=== PATIENT | female | born 1985 | race Two or more races ===

== ENCOUNTER 2021-05-19 11:32 | Emergency (ER) | payer MEDICAID, OTHER ==
[~2021-05-19] VITALS: Ht 152.4 cm; Wt 58.5 kg
[2021-05-19 13:00] VITALS: BP 124/79
[2021-05-19] MEDS ORDERED: cefTRIAXone SOD 1,000 MG VL IM ONE (13:15)
== END 2021-05-19 13:24 | disposition home or self-care (01) ==
LOC: ER 11:32
DX: K02.9 Dental caries, unspecified (principal); J45.909 Unspecified asthma, uncomplicated
CPT/HCPCS: 96372; 99283; J0696

== ENCOUNTER 2024-03-17 10:14 | Inpatient (IN) | payer MEDICAID ==
[~2024-03-17] VITALS: Ht 152.4 cm; Wt 64.7 kg
[~2024-03-17 10:14] MED LIST: AZIT-185 PO; CEFD300C2 PO; CEPH-510 PO; FER325T PO; IBUP-1454 PO; METH-1181 PO
[2024-03-17 11:00] VITALS: RESP 14
[2024-03-17] MEDS: IOHEXOL 350 MG/ML 100ML IJ ONE (11:20)
[2024-03-17 12:01] LABS: Basophils # (auto) 0.1 10 ^3/uL (0-0.2); Basophils % (auto) 1.2 % (0.0-2.0); Eosinophils # (auto) 0.2 10 ^3/uL (0-0.8); Hematocrit 27.6 % (36.0-46.0); Hemoglobin 8.7 g/dL (12.2-16.2); Lymphocytes # (auto) 1.4 10 ^3/uL (0.4-5.4); Lymphocytes % (auto) 24.8 % (10.0-50.0); Mean Corpuscular Hemoglobin 23.7 pg (28.0-32.0); Mean Corpuscular Hgb Conc. 31.6 g/dL (32.0-36.0); Mean Corpuscular Volume 75.1 fL (80.0-100.0); Monocytes # (auto) 0.6 10 ^3/uL (0-1.3); Monocytes % (auto) 9.8 % (0.0-12.0); Neutrophils # (auto) 3.5 10 ^3/uL (1.6-8.6); Neutrophils % (auto) 61.2 % (37.0-80.0); Nucleated Red Blood Cells % 0.1 %; Red Blood Cells 3.68 10^6/uL (4.0-5.20); Red Cell Distribution Width 17.2 % (11.8-14.3); White Blood Cell 5.8 10^3/uL (4.4-10.8)
[2024-03-17 12:14] LABS: Alanine Aminotransferase 12 U/L (7-40); Albumin 3.9 g/dL (3.2-4.8); Alkaline Phosphatase 43 U/L (46-116); Anion Gap 4 (5-15); Aspartate Aminotransferase 31 U/L (13-40); BUN/Creatinine Ratio 8.7 (10.0-20.0); Blood Urea Nitrogen 6 mg/dL (9-23); Calcium 8.3 mg/dL (8.5-10.1); Carbon Dioxide 26 mmol/L (20-30); Chloride 107 mmol/L (98-107); Glucose 81 mg/dL (74-106); Potassium 4.3 mmol/L (3.5-5.1); Sodium 137 mmol/L (136-145)
[2024-03-17 12:15] LABS: Bilirubin, Total 0.6 mg/dL (0.2-1.0); INR 1.11 (0.9-1.15); Partial Thromboplastin Time 30.2 SEC (24.5-34.5); Prothrombin Time 11.6 sec (9.3-11.8); Total Protein 6.1 g/dL (5.7-8.2)
[2024-03-17] MEDS: SODIUM CHLORIDE 0.9% 500 ML IV ONE (12:21)
[2024-03-17 13:08] LABS: Magnesium 1.8 mg/dL (1.6-2.6)
[2024-03-17] MEDS: VALPROATE INJ 500 MG in SODIUM CHL 0.9% 100 ML IV ONE (13:13)
[2024-03-17 15:27] LABS: Urine Bacteria None Seen /hpf (None Seen)
[2024-03-17 15:41] LABS: Urine Blood Negative /uL (Negative); Urine Clarity Clear (Clear); Urine Color Light-Yellow (Yellow); Urine Protein, UAD Negative (Negative); Urine Specific Gravity 1.043 (1.001-1.035); Urine Urobilinogen Normal (Negative); Urine WBC 5 /hpf (0 - 5); Urine pH 7.5 (5.0-9.0)
[2024-03-17 15:48] LABS: Amphetamine Screen, Urine Neg (NEGATIVE); Barbiturate Scree,Urine Neg (NEGATIVE); Benzodiazephine Screen, Urine Neg (NEGATIVE); Cannabinoid Screen, Urine Neg (NEGATIVE); Cocaine Screen, Urine Neg (NEGATIVE); Opiate Scree,Urine Neg (NEGATIVE); Phencyclidine Screen, Urine Neg (NEGATIVE)
[2024-03-17] MEDS ORDERED: MORPHINE SULFATE INJ 2 MG/ml SYRG IV PRN (16:15)
[2024-03-17] MEDS ORDERED: NITROGLYCERIN 0.4 MG SL TAB SL PRN (16:15)
[2024-03-17] MEDS ORDERED: ACETAMINOPHEN 325 MG TAB PO PRN (16:15)
[2024-03-17] MEDS ORDERED: ONDANSETRON HCL 4 MG/2 ML VIAL IV PRN (16:15)
[2024-03-17] MEDS ORDERED: DOCUSATE SOD 100 MG CAP PO PRN (16:15)
[2024-03-17] MEDS ORDERED: LORazepam 2MG/ML-1ML VIAL IV ONE (17:30)
[2024-03-17] MEDS: diphenhdrAMINE HCL 50 MG/1 ML VL IV ONE (17:40)
[2024-03-17] MEDS: KETOROLAC TROMETH 30 MG/ML 1ML VIAL IV ONE (17:40)
[2024-03-17] MEDS: METOCLOPRAMIDE HCL 5MG/ml INJ 2ml VIAL IV ONE (17:41)
[2024-03-17] MEDS: MAGNESIUM SULFATE 1GM/100ML 100 ML IV SCH (17:57)
[2024-03-17 19:30] VITALS: RESP 19; O2SAT 99
[2024-03-18] VITALS (7 sets, daily range): BP systolic 104–115; BP diastolic 54–74; PULSE 76–98; RESP 16–20; TEMP 97.2–98.2; O2SAT 98–100
[2024-03-18 06:06] LABS: Alkaline Phosphatase 45 U/L (46-116); Calcium 8.7 mg/dL (8.5-10.1); Carbon Dioxide 25 mmol/L (20-30); Chloride 109 mmol/L (98-107); Glucose 74 mg/dL (74-106); Potassium 3.8 mmol/L (3.5-5.1); Sodium 141 mmol/L (136-145)
[2024-03-18 06:07] LABS: Albumin 3.8 g/dL (3.2-4.8); Anion Gap 7 (5-15); Aspartate Aminotransferase 16 U/L (13-40)
[2024-03-18 06:08] LABS: Bilirubin, Total 0.8 mg/dL (0.2-1.0); Total Protein 6.3 g/dL (5.7-8.2)
[2024-03-18 06:20] LABS: Basophils # (auto) 0.1 10 ^3/uL (0-0.2); Hemoglobin 9.2 g/dL (12.2-16.2); Neutrophils # (auto) 2.9 10 ^3/uL (1.6-8.6); Neutrophils % (auto) 51.1 % (37.0-80.0); Red Cell Distribution Width 17.4 % (11.8-14.3)
[2024-03-18 06:21] LABS: Alanine Aminotransferase < 9 U/L (7-40); Blood Urea Nitrogen < 5 mg/dL (9-23)
[2024-03-18 06:24] LABS: Eosinophils # (auto) 0.2 10 ^3/uL (0-0.8); Eosinophils % (auto) 4.3 % (0.0-7.0); Hematocrit 28.5 % (36.0-46.0); Lymphocytes # (auto) 1.9 10 ^3/uL (0.4-5.4); Lymphocytes % (auto) 32.3 % (10.0-50.0); Mean Corpuscular Hemoglobin 24.2 pg (28.0-32.0); Mean Corpuscular Hgb Conc. 32.1 g/dL (32.0-36.0); Mean Corpuscular Volume 75.3 fL (80.0-100.0); Monocytes # (auto) 0.6 10 ^3/uL (0-1.3); Monocytes % (auto) 11.3 % (0.0-12.0); Red Blood Cells 3.79 10^6/uL (4.0-5.20); White Blood Cell 5.7 10^3/uL (4.4-10.8)
[2024-03-18] MEDS: HYDROcodone-ACET 7.5/325MG TAB PO PRN (10:15)
[2024-03-18] MEDS: ASPirin-EC 81 mg tab PO SCH (10:15)
[2024-03-18] MEDS: IBUPROFEN 600 MG TAB PO PRN (12:11)
[2024-03-18] MEDS: TOPIRAMATE 25 MG TAB PO SCH (23:06)
[2024-03-19 05:00] VITALS: BP 105/64; PULSE 81; RESP 18; TEMP 98.4; O2SAT 99
[2024-03-19 08:00] VITALS: PULSE 80; RESP 20; O2SAT 100
[2024-03-19 09:00] VITALS: BP 131/77; PULSE 85; RESP 17; TEMP 97.9; O2SAT 100
[2024-03-19] MEDS ORDERED: TOPI25TA84 PO (10:28)
[2024-03-19 13:00] VITALS: BP 119/80; PULSE 77; RESP 19; TEMP 97.5; O2SAT 100
[2024-03-19 16:51] VITALS: BP 131/77; PULSE 85; RESP 17; TEMP 36.9; O2SAT 100
[2024-03-19 17:00] VITALS: BP 115/67; PULSE 94; RESP 18; TEMP 97.7; O2SAT 100
== END 2024-03-19 18:35 | disposition home or self-care (01) | DRG 54 ==
LOC: ER 10:14 → OVERFLOW 16:13 → CENTRAL 03-18
PROVIDERS: ADMIT Nurse Practitioner Family; ATTEND Internal Medicine Geriatric Medicine
DX: G43.109 Migraine with aura, not intractable, without status migrainosus (principal); J45.909 Unspecified asthma, uncomplicated; M43.6 Torticollis; R20.0 Anesthesia of skin; Z86.73 Personal history of transient ischemic attack (TIA), and cerebral infarction without residual deficits; Z79.899 Other long term (current) drug therapy; Z98.51 Tubal ligation status
CPT/HCPCS: 36415; 70450; 70496; 70551; 71045; 80053; 80307; 81001; 83735; 83880; 84484; 84702; 85025; 85610; 85730; 93005; 96365; 96375; 97110; 97116; 97163; G0378; J1885

== ENCOUNTER 2024-09-10 08:37 | Emergency (ER) | payer MEDICAID ==
[~2024-09-10] VITALS: Ht 152.4 cm; Wt 59.0 kg
[~2024-09-10 08:37] MED LIST changes: -AZIT-185 PO; -CEFD300C2 PO; -CEPH-510 PO; -FER325T PO; -IBUP-1454 PO; -METH-1181 PO; +TOPI25TA84 PO
[2024-09-10 09:35] VITALS: BP 135/89; PULSE 99; RESP 16; TEMP 97.7; O2SAT 99
[2024-09-10] MEDS: KETOROLAC TROMETH 60MG/2ML VIAL IM ONE (10:05)
[2024-09-10] MEDS ORDERED: BACL10TA PO (10:11)
[2024-09-10] MEDS ORDERED: IBUP-1456 PO (10:11)
== END 2024-09-10 10:07 | disposition home or self-care (01) ==
LOC: ER 08:37
DX: M43.6 Torticollis (principal); M25.512 Pain in left shoulder; Z79.899 Other long term (current) drug therapy
CPT/HCPCS: 72040; 93005; 96372; 99283; J1885

== ENCOUNTER 2024-10-26 08:02 | Emergency (ER) | payer MEDICAID ==
[~2024-10-26] VITALS: Ht 152.4 cm; Wt 59.0 kg
[~2024-10-26 08:02] MED LIST changes: +BACL10TA PO; +IBUP-1456 PO
--- NOTE | 2024-10-26 08:44 | ED.PDOC ---
General HPI Comments 39-year-old female who comes in with chief complaint of right-sided flank pain as well as headache. The patient states that the symptoms started last night. She states that at approximately 6:00 a.m. last night she was at rest when the symptoms began. She did have some nausea and vomiting but no dysuria or hematuria. She has had a similar episode in the past and was told that she had some type kidney problems but not kidney stones. She was able to ambulate into the emergency department's without any difficulty. Chief Complaint: Flank Pain Time Seen by MD: 08:03 Reviewed notes: Nurses Notes, Medications, Allergies (No allergies to me dications) Allergies: Coded Allergies: NO KNOWN ALLERGIES (Unverified , 05/19/21) Home Meds Active Scripts Tramadol HCl (Tramadol HCl) 50 Mg Tab, 50 MG PO Q8HP PRN for 5 Days, #15 TAB Prov:VALE MARTINES MD 10/26/24 Baclofen (Baclofen) 10 Mg Tab, 10 MG PO BID, #20 TAB Prov:JEREMY JEFFREY 09/10/24 Ibuprofen (Ibuprofen) 800 Mg Tab, 1 TAB PO TID, #30 TAB Prov:JEREMY JFEFREY 09/10/24 Topiramate (Topiramate) 25 Mg Tab, 25 MG PO HS for 120 Days, #120 TAB Take 1 tablet nightly for 7 days then twice daily for 7 days then 1 in the morning and 2 in the evening for 7 days and then 2 twice a day after that Prov:JOSÉ VARGAS MD 03/19/24 Information Source: Patient Mode of Arrival: Ambulatory Severity: Moderate Inability to void: None Timing: Hours Duration: Since onset Prehospital treatment: None Onset: Spontaneous Symptoms: None History of: None Location: (R) Flank Modifying factors: None associated signs and symptoms: Abdominal Pain, Nausea, Vomiting, Other (The patient also has been associated headache) Past Medical History Surgical History: BTL, , Denies all surgeries OFFICE AUTOMATION TECHNICIAN History: No Pertinent OFFICE AUTOMATION TECHNICIAN History Family History Family History: Family hx of Cancer, Family hx of heart jesse, Family hx of HTN Social History Smoker: Non-Smoker Alcohol: Occasionally Drugs: Denies Drug Use Lives In: Home Constitutional: denies: chills, diaphoresis, fatigue, fever, malaise, sweats, weakness, others EENTM: denies: blurred vision, double vision, ear bleeding, ear discharge, ear drainage, ear pain, ear ringing, eye pain, eye redness, hearing loss, mouth pain, mouth swelling, nasal discharge, nose bleeding, nose congestion, nose pain, photophobia, tearing, throat pain, throat swelling, voice changes, others Respiratory: denies: cough, hemoptysis, orthopnea, SOB at rest, shortness of breath, SOB with excertion, stridor, wheezing, others Cardiovascular: denies: chest pain, dizzy spells, diaphoresis, Dyspnea on exertion, edema, irregular heart beat, left arm pain, lightheadedness, palpitations, PND, syncope, others Gastrointestinal: reports: abdominal pain, nausea, vomiting; denies: abdomen distended, blood streaked bowels, constipated, diarrhea, dysphagia, difficulty swallowing, hematemesis, melena, poor appetite, poor fluid intake, rectal bleeding, rectal pain, others Genitourinary: reports: flank pain (Right-sided flank pain); denies: abnormal vagina bleeding, burning, dyspareunia, dysuria, frequency, hematuria, incontinence, pain, , vagina discharge, urgency, others Neurological: denies: dizziness, fainting, headache, left sided numbness, left sided weakness, numbness, paresthesia, pre-existing deficit, right sided numbness, right sided weakness, seizure, speech problems, tingling, tremors, weakness, others Musculoskeletal: denies: back pain, gout, joint pain, joint swelling, muscle pain, muscle stiffness, neck pain, others Integumetry: denies: bruises, change in color, change in hair/nails, dryness, laceration, lesions, lumps, rash, wounds, others Allergic/Immunocompromised: denies: Difficulty Healing, Frequent Infections, Hives, Itching, others Hematologic/Lymphatic: denies: anemia, blood clots, easy bleeding, easy bruising, swollen glands, others Endocrine: denies: excessive hunger, excessive sweating, excessive thirst, excessive urination, flushing, intolerance to cold, intolerance to heat, unexplained weight gain, unexplained weight loss, others Psychiatric: denies: anxiety, bipolar disorder, depression, hopeless, panic disorder, schizophrenia, sleepless, suicidal, others Physical Exam General Appearance: Moderate Distress HEENT: Normal ENT Inspection, Pharynx Normal, TMs Normal Neck: Full Range of Motion, Non-Tender, Normal, Normal Inspection Respiratory: Chest Non-Tender, Lungs Clear, No Accessory Muscle Use, No Respiratory Distress, Normal Breath Sounds Cardiovascular: No Edema, No JVD, No Murmur, No Gallop, Normal Peripheral Pulses, Regular Rate/Rhythm Breast Exam: Deferred Gastrointestinal: No Organomegaly, No Pulsatile Mass, Normal Bowel Sounds, RLQ, Soft, Tenderness Genitalia: Deferred Pelvic: Deferred Rectal: Deferred Extremities: No calf tenderness, Normal capillary refill, Normal inspection, Normal range of motion, Non-tender, No pedal edema Musculoskeletal : Location: Right Extremity Location: Back Apperance: Tenderness: Mild Neurologic: Alert, surgical instrument technician II-XII 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 Was a procedure done?: No Differential Diagnosis Kidney stone (Female): Musculoskeletal pain, Pancreatitis, Pyelonephritis, Renal failure, Strain, Urolithiasis X-Ray, Labs, Meds, VS Vital Signs Date Time Temp Pulse Resp B/P (MAP) Pulse Ox O2 Delivery O2 Flow Rate FiO2 10/26/24 10:00 98.4 100 18 123/74 (90) 100 98.4 10/26/24 09:58 18 100 Room Air* 0 21 10/26/24 08:17 97.5 108 18 122/79 (93) 100 Lab Test 10/26/24 09:00 10/26/24 08:29 Range/Units Urine Color Light-yellow Yellow Urine Clarity Turbid H Clear Urine pH 5.5 5.0-9.0 Urine Specific [place] 1.011 1.001-1.035 Urine Protein Negative Negative Urine Ketones Negative Negative Urine Blood Trace H Negative /uL Urine Nitrite Negative Negative Urine Bilirubin Negative Negative Urine Urobilinogen Normal Negative mg/dL Urine Leukocyte Esterase Negative Negative /uL Urine RBC 2 0 - 4 /hpf Urine WBC 2 0 - 5 /hpf Urine Squamous Epithelial Cells Few <5 /hpf Urine Bacteria None seen None Seen /hpf Urine Hyaline Casts Few 0 - 2 /lpf Urine Glucose Normal Normal mg/dL White Blood Count 7.8 4.4-10.8 10^3/uL Red Blood Count 4.45 4.0-5.20 10^6/uL Hemoglobin 10.5 L 12.2-16.2 g/dL Hematocrit 32.4 L 36.0-46.0 % Mean Corpuscular Volume 72.8 L 80.0-100.0 fL Mean Corpuscular Hemoglobin 23.6 L 28.0-32.0 pg Mean Corpuscular Hemoglobin Concent 32.4 32.0-36.0 g/dL Red Cell Distribution Width 18.7 H 11.8-14.3 % Platelet Count 443 140-450 10^3/uL Mean Platelet Volume 7.9 6.9-10.8 fL Neutrophils (%) (Auto) 70.4 37.0-80.0 % Lymphocytes (%) (Auto) 17.2 10.0-50.0 % Monocytes (%) (Auto) 8.4 0.0-12.0 % Eosinophils (%) (Auto) 3.0 0.0-7.0 % Basophils (%) (Auto) 1.0 0.0-2.0 % Neutrophils # (Auto) 5.5 1.6-8.6 10 ^3/uL Lymphocytes # (Auto) 1.3 0.4-5.4 10 ^3/uL Monocytes # (Auto) 0.6 0-1.3 10 ^3/uL Eosinophils # (Auto) 0.2 0-0.8 10 ^3/uL Basophils # (Auto) 0.1 0-0.2 10 ^3/uL Nucleated Red Blood Cells 0.1 % Sodium Level 140 136-145 mmol/L Potassium Level 3.6 3.5-5.1 mmol/L Chloride Level 105 98-107 mmol/L Carbon Dioxide Level 28 20-31 mmol/L Anion Gap 7 5-15 Blood Urea Nitrogen 8 L 9-23 mg/dL Creatinine 0.91 0.550-1.02 mg/dL Glomerular Filtration Rate Calc 82 >90 mL/min BUN/Creatinine Ratio 8.8 L 10.0-20.0 Serum Glucose 86 74-106 mg/dL Calcium Level 10.3 8.7-10.4 mg/dL Total Bilirubin 0.8 0.2-1.0 mg/dL Aspartate Amino Transferase (AST) 17 13-40 U/L Alanine Aminotransferase (ALT) < 9 7-40 U/L Alkaline Phosphatase 62 46-116 U/L Total Protein 8.1 5.7-8.2 g/dL Albumin 4.9 H 3.2-4.8 g/dL Lipase 49 12-53 U/L The patient's CBC and chemistry panel are within normal limits The lipase is within normal limits The urine test is negative At this time, the patient will be discharged The diagnosis is musculoskeletal pain The CT scan of the abdomen and pelvis: IMPRESSION: 1. Punctate nonobstructing intrarenal calculus. No hydronephrosis. 2. Sigmoid diverticulosis without acute diverticulitis. At this time, the patient was discharged on tramadol Images Reviewed?: Images reviewed and evaluated by me Time of 1ST Reevaluation: 08:44 Reevaluation 1ST: Unchanged Patient Education/Counseling: Diagnosis, Treatment, Prognosis, Need For Follow Up Family Education/Counseling: No Family Present Departure 1 Departure Time of Disposition: 10:38 Impression: Primary Impression: Abdominal pain of unknown etiology Additional Impression: Musculoskeletal pain Disposition: 01 HOME / SELF CARE / HOMELESS Condition: Fair e-Prescriptions Tramadol HCl (Tramadol HCl) 50 Mg Tab 50 MG PO Q8HP PRN for 5 Days, #15 TAB Prov: VALE MARTINES MD 10/26/24 Discharged With: Self Critical Care Note Critical Care Time?: No Stability Stability form required: No Heart Score Heart Score: Heart Score Response (Comments) Value History N/A 0 EKG N/A 0 Age N/A 0 Risk Factors N/A 0 Troponin N/A 0 Total 0 VALE MARTINES MD Oct 26, 2024 08:44
[2024-10-26 08:55] LABS: Eosinophils # (auto) 0.2 10 ^3/uL (0-0.8); Nucleated Red Blood Cells % 0.1 %
[2024-10-26 08:57] LABS: Basophils # (auto) 0.1 10 ^3/uL (0-0.2); Hematocrit 32.4 % (36.0-46.0); Hemoglobin 10.5 g/dL (12.2-16.2); Lymphocytes # (auto) 1.3 10 ^3/uL (0.4-5.4); Lymphocytes % (auto) 17.2 % (10.0-50.0); Mean Corpuscular Hemoglobin 23.6 pg (28.0-32.0); Mean Corpuscular Hgb Conc. 32.4 g/dL (32.0-36.0); Mean Corpuscular Volume 72.8 fL (80.0-100.0); Monocytes # (auto) 0.6 10 ^3/uL (0-1.3); Monocytes % (auto) 8.4 % (0.0-12.0); Neutrophils # (auto) 5.5 10 ^3/uL (1.6-8.6); Neutrophils % (auto) 70.4 % (37.0-80.0); Platelet Count (auto) 443 10^3/uL (140-450); Red Blood Cells 4.45 10^6/uL (4.0-5.20); Red Cell Distribution Width 18.7 % (11.8-14.3); White Blood Cell 7.8 10^3/uL (4.4-10.8)
[2024-10-26 09:03] LABS: Urine Bacteria None Seen /hpf (None Seen)
[2024-10-26 09:07] LABS: Albumin 4.9 g/dL (3.2-4.8); Alkaline Phosphatase 62 U/L (46-116); Anion Gap 7 (5-15); Aspartate Aminotransferase 17 U/L (13-40); BUN/Creatinine Ratio 8.8 (10.0-20.0); Bilirubin, Total 0.8 mg/dL (0.2-1.0); Blood Urea Nitrogen 8 mg/dL (9-23); Calcium 10.3 mg/dL (8.7-10.4); Carbon Dioxide 28 mmol/L (20-31); Chloride 105 mmol/L (98-107); Glucose 86 mg/dL (74-106); Potassium 3.6 mmol/L (3.5-5.1); Sodium 140 mmol/L (136-145); Total Protein 8.1 g/dL (5.7-8.2)
[2024-10-26 09:08] LABS: Alanine Aminotransferase < 9 U/L (7-40)
[2024-10-26 09:33] LABS: Urine Blood TRACE /uL (Negative); Urine Clarity Turbid (Clear); Urine Color Light-Yellow (Yellow); Urine Hyaline Cast FEW /lpf (0 - 2); Urine Protein, UAD Negative (Negative); Urine Specific Gravity 1.011 (1.001-1.035); Urine Urobilinogen Normal (Negative); Urine WBC 2 /hpf (0 - 5); Urine pH 5.5 (5.0-9.0)
--- NOTE | 2024-10-26 09:45 | DVH ---
Exam: CT CT AB PEL WO CON-NO ORAL OR IV History: right flank pain Comparison Study: None available at time of dictation. Technique: Multidetector spiral CT of the abdomen and pelvis was performed from lung bases to pubic s ymphysis. Imaging was performed without intravenous contrast. Coronal and sagittal multiplanar refor mats were obtained from the axial data set by the technologist. Radiation Dose : 1. Abdomen/Pelvis: CTDIvol 5.22 mGy, DLP 244.1 mGy*cm. Findings: Evaluation of vasculature and solid organs is limited due to lack of intravenous contrast use. Lung Bases: Lung bases are clear. Visualized portions of the heart and pericardium are unremarkable. Liver: The liver is normal in size. No focal lesions. Gallbladder and Biliary Tree: The gallbladder is unremarkable. No intrahepatic or extrahepatic bili asaf ductal dilatation. Spleen: Unremarkable Pancreas: The pancreas is grossly unremarkable. Adrenal Glands: Unremarkable Kidneys: Punctate nonobstructing right intrarenal calculus. Left kidney is unremarkable. GI tract: The stomach is grossly normal in appearance. No evidence of small bowel wall thickening or abnormal dilatation to suggest bowel obstruction. Scattered colonic diverticulosis without acute div erticulitis.. The appendix is not visualized, however no inflammatory changes in the right lower migue drant to suggest acute appendicitis. Peritoneum/mesentery/retroperitoneum. No evidence of free intraperitoneal air. No ascites. No evidenc e of suspicious lymphadenopathy. Abdominal Wall: Unremarkable. Vasculature: The visualized abdominal aorta is normal in size and caliber. Evaluation of abdominal a nd pelvic vessels is limited due to lack of intravenous contrast. Urinary Bladder: Grossly unremarkable for degree of distention. Pelvic Organs: Uterus and adnexal structures grossly unremarkable within the limitations of unenhance d CT. Musculoskeletal: No aggressive focal bony lesions, acute fractures or dislocation. IMPRESSION: 1. Punctate nonobstructing intrarenal calculus. No hydronephrosis. 2. Sigmoid diverticulosis without acute diverticulitis.
[2024-10-26 09:55] LABS: Lipase 49 U/L (12-53)
[2024-10-26 09:58] VITALS: RESP 18; O2SAT 100
[2024-10-26] MEDS ORDERED: TRAM-626 PO (10:36)
[2024-10-26] MEDS: ONDANSETRON HCL 4 MG/2 ML VIAL IM ONE (11:16)
[2024-10-26] MEDS: MORPHINE SULFATE 4 MG/ML SYR/VIAL IM ONE (11:16)
[2024-10-26 11:35] VITALS: TEMP 98; O2SAT 100
[2024-10-26 11:36] VITALS: BP 133/90; PULSE 90; RESP 16
== END 2024-10-26 11:40 | disposition home or self-care (01) ==
LOC: ER 08:02
DX: R10.9 Unspecified abdominal pain (principal); R51.9 Headache, unspecified; Z98.890 Other specified postprocedural states; Z79.1 Long term (current) use of non-steroidal anti-inflammatories (NSAID); Z79.899 Other long term (current) drug therapy
CPT/HCPCS: 36415; 74176; 80053; 81001; 83690; 85025; 96372; 99285; J2270; J2405

== ENCOUNTER 2025-01-26 09:21 | Emergency (ER) | payer MEDICAID ==
[~2025-01-26] VITALS: Ht 160 cm; Wt 58.4 kg
[~2025-01-26 09:21] MED LIST changes: +TRAM-626 PO
[2025-01-26 10:57] VITALS: BP 110/73; PULSE 79; RESP 16; TEMP 98.2; O2SAT 100
--- NOTE | 2025-01-26 11:22 | ED.PDOC ---
Musculoskeletal HPI Comments 39 year old female presents for R shoulder pain No trama or injury Symptoms started: yesterday C/o right shoulder pain after lifting case of water No pain worsens with movement She is right hand dominant Chief Complaint: Upper Extremity Time Seen by MD: 10:01 Primary Care Provider: DAYSI DUFFY Reviewed Notes: Nurses Notes, Medications, Allergies Allergies: Coded Allergies: NO KNOWN ALLERGIES (Unverified , 05/19/21) Home Meds Active Scripts Naproxen (Naproxen) 500 Mg Tab, 500 MG PO BIDPC for 10 Days, #20 TAB 0 Refills Prov:TIARA MONTEMAYOR NP 01/26/25 Tramadol HCl (Tramadol HCl) 50 Mg Tab, 50 MG PO Q8HP PRN for 5 Days, #15 TAB Prov:VALE MARTINES MD 10/26/24 Baclofen (Baclofen) 10 Mg Tab, 10 MG PO BID, #20 TAB Prov:JEREMY JEFFREY 09/10/24 Ibuprofen (Ibuprofen) 800 Mg Tab, 1 TAB PO TID, #30 TAB Prov:JEREMY JEFFREY 09/10/24 Topiramate (Topiramate) 25 Mg Tab, 25 MG PO HS for 120 Days, #120 TAB Take 1 tablet nightly for 7 days then twice daily for 7 days then 1 in the morning and 2 in the evening for 7 days and then 2 twice a day after that Prov:JOSÉ VARGAS MD 03/19/24 Mode of Arrival: Ambulatory Past Medical History Surgical History: BTL, , Denies all surgeries INVASIVE PHYSICIAN History: No Pertinent INVASIVE PHYSICIAN History Family History Family History: Family hx of Cancer, Family hx of heart jesse, Family hx of HTN Social History Smoker: Non-Smoker Alcohol: Occasionally Drugs: Denies Drug Use Lives In: Home All Other Systems: Reviewed and Negative (per hpi) Physical Exam General Appearance: No Apparent Distress, Normal HEENT: Normal ENT Inspection, Pharynx Normal, TMs Normal Neck: Full Range of Motion, Non-Tender, Normal, Normal Inspection Respiratory: Chest Non-Tender, Lungs Clear, No Accessory Muscle Use, No Respiratory Distress, Normal Breath Sounds Cardiovascular: No Edema, No JVD, No Murmur, No Gallop, Normal Peripheral Pulses, Regular Rate/Rhythm Breast Exam: Deferred Gastrointestinal: No Organomegaly, Non Tender, No Pulsatile Mass, Normal Bowel Sounds, Soft Genitalia: Deferred Pelvic: Deferred Rectal: Deferred Extremities: No calf tenderness, Normal capillary refill, Normal inspection, Normal range of motion, Non-tender, No pedal edema Musculoskeletal : Location: Right Extremity Location: Shoulder ( No gross abnormality on inspection. No shoulder drop visible. No clavicular tenderness on palpation. Palpation tenderness to coracoid process and acromion process. No scapular, supraspinatus, infraspinatus tenderness to touch. Limited flexion passive movement due to pain. Pain with abduction. ) Apperance: Normal Neurologic: Alert, No Motor Deficits, Normal Affect, Normal Mood, No Sensory Deficits Cerebellar Function: Normal Reflexes: Normal Skin: Dry, Normal Color, Warm Lymphatic: No Adenopathy Was a procedure done? Was a procedure done?: No Differential Diagnosis EXT Differential Diagnosis: Sprain X-Ray, Labs, Meds, VS Vital Signs Date Time Temp Pulse Resp B/P (MAP) Pulse Ox O2 Delivery O2 Flow Rate FiO2 01/26/25 10:57 98.2 79 16 110/73 (85) 100 98.2 01/26/25 10:57 79 16 100 Room Air 01/26/25 09:40 98.2 79 16 110/73 (85) 100 PATIENT: BRITTANY LEACHACCT: [id number]: [id number] : 1985 LOC: ER ROOM / BED: / AGE / SEX: 39 / F ADM STATUS: REG ER SERVICE 1121 ORDERING PHYSICIAN: TIARA MONTEMAYOR NP PROCEDURE(s): RSHD2 - R SHOULDER 2+ VIEW XRAY REASON: pain. r/o dislocation ORDER NUMBER(s): [id number], ACCESSION NUMBER(s): [id number] CLINICAL INDICATION: pain. r/o dislocation TECHNIQUE: 3 radiographic views of the right shoulder were obtained. Comparison: None FINDINGS/IMPRESSION: There is no evidence of acute fracture or dislocation. The visualized joint space is well maintained. The alignment is anatomical. There is no radiopaque foreign body. ATED BY: JUSTIN ALEJANDRO MD DICTATED DATE/TIME: 01/26/25 1151 SIGNED BY: JUSTIN ALEJANDRO MD SIGNED DATE/TIME: 01/26/25 8039 CC: X-Ray, Labs, Meds, VS Comment History and examination consistent of muscular injury X-rays ordered, read by radiologist and reviewed by me No signs of tendon or ligament instability Low likelihood of bony or more serious injury, VSS, pt stable Take IBU 600 w/ food as needed for pain Recommended heat therapy Reviewed RICE management Avoid heavy lifting or strenuous activity Recommended range of motion exercises and limit heavy activity for 1 week If no improvement advised patient to return to the emergency department for fol low-up. Time of 1ST Reevaluation: 12:01 Reevaluation 1ST: Improved Patient Education/Counseling: Diagnosis, Treatment Family Education/Counseling: Diagnosis, Treatment Departure 1 Departure Time of Disposition: 12:01 Impression: Primary Impression: Injury of right rotator cuff Qualified Codes: S46.001A - Unspecified injury of muscle(s) and tendon(s) of the rotator cuff of right shoulder, initial encounter Disposition: HOME / SELF CARE / HOMELESS Condition: Fair e-Prescriptions Naproxen (Naproxen) 500 Mg Tab 500 MG PO BIDPC for 10 Days, #20 TAB 0 Refills Prov: TIAAR MONTEMAYOR NP 01/26/25 Critical Care Note Critical Care Time?: No Stability Stability form required: No Heart Score Heart Score: Heart Score Response (Comments) Value History N/A 0 EKG N/A 0 Age N/A 0 Risk Factors N/A 0 Troponin N/A 0 Total 0 TIARA MONTEMAYOR NP Jan 26, 2025 11:22
[2025-01-26] MEDS: KETOROLAC TROMETH 30 MG/ML 1ML VIAL IM ONE (11:48)
--- NOTE | 2025-01-26 11:52 | DVH ---
CLINICAL INDICATION: pain. r/o dislocation TECHNIQUE: 3 radiographic views of the right shoulder were obtained. Comparison: None FINDINGS/IMPRESSION: There is no evidence of acute fracture or dislocation. The visualized joint space is well maintained. The alignment is anatomical. There is no radiopaque foreign body.
[2025-01-26] MEDS ORDERED: NAPR-746 PO (12:02)
== END 2025-01-26 12:13 | disposition home or self-care (01) ==
LOC: ER 09:21
DX: S46.001A Unspecified injury of muscle(s) and tendon(s) of the rotator cuff of right shoulder, initial encounter (principal); Z98.51 Tubal ligation status; Z79.1 Long term (current) use of non-steroidal anti-inflammatories (NSAID); Z79.899 Other long term (current) drug therapy; X50.1XXA Overexertion from prolonged static or awkward postures, initial encounter; Y93.89 Activity, other specified; Y92.89 Other specified places as the place of occurrence of the external cause; Y99.8 Other external cause status
CPT/HCPCS: 73030; 96372; 99283; J1885

== ENCOUNTER 2025-02-15 15:43 | Emergency (ER) | payer MEDICAID, OTHER ==
[~2025-02-15] VITALS: Ht 152.4 cm; Wt 57.0 kg
[~2025-02-15 15:43] MED LIST changes: +NAPR-746 PO
[2025-02-15 15:56] VITALS: BP 125/73; PULSE 100; RESP 20; TEMP 97.3; O2SAT 98
[2025-02-15 16:36] LABS: Urine Bacteria None Seen /hpf (None Seen)
[2025-02-15 16:43] LABS: Urine Blood TRACE /uL (Negative); Urine Clarity Turbid (Clear); Urine Color Light-Yellow (Yellow); Urine Mucus FEW (None Seen); Urine Protein, UAD Negative (Negative); Urine Specific Gravity 1.016 (1.001-1.035); Urine Squamous Epithelial Cell MOD /hpf (<5); Urine Urobilinogen Normal (Negative); Urine WBC 2 /HPF (0-5)
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
[2025-02-15 17:05] LABS: Basophils # (auto) 0.1 10 ^3/uL (0-0.2); Basophils % (auto) 1.2 % (0.0-2.0); Eosinophils # (auto) 0.2 10 ^3/uL (0-0.8); Eosinophils % (auto) 3.4 % (0.0-7.0); Hematocrit 29.6 % (36.0-46.0); Hemoglobin 9.3 g/dL (12.2-16.2); Lymphocytes # (auto) 1.3 10 ^3/uL (0.4-5.4); Lymphocytes % (auto) 19.7 % (10.0-50.0); Mean Corpuscular Hemoglobin 22.5 pg (28.0-32.0); Mean Corpuscular Hgb Conc. 31.5 g/dL (32.0-36.0); Mean Corpuscular Volume 71.6 fL (80.0-100.0); Monocytes # (auto) 0.6 10 ^3/uL (0-1.3); Monocytes % (auto) 9.5 % (0.0-12.0); Neutrophils # (auto) 4.4 10 ^3/uL (1.6-8.6); Neutrophils % (auto) 66.2 % (37.0-80.0); Nucleated Red Blood Cells % 0.1 %; Platelet Count (auto) 429 10^3/uL (140-450); Red Blood Cells 4.13 10^6/uL (4.0-5.20); Red Cell Distribution Width 17.8 % (11.8-14.3); White Blood Cell 6.7 10^3/uL (4.4-10.8)
[2025-02-15] MEDS ORDERED: METH-1181 PO (17:05)
[2025-02-15] MEDS ORDERED: IBUP-1455 PO (17:05)
[2025-02-15] MEDS ORDERED: LIDO5DIS21 TOP (17:05)
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
[2025-02-15 17:13] LABS: Chloride 103 mmol/L (98-107); Sodium 141 mmol/L (136-145)
[2025-02-15 17:14] LABS: Anion Gap 10 (5-15); Carbon Dioxide 28 mmol/L (20-31)
[2025-02-15 17:19] LABS: BUN/Creatinine Ratio 6.5 (10.0-20.0); Glucose 78 mg/dL (74-106)
[2025-02-15 17:23] LABS: Blood Urea Nitrogen 6 mg/dL (9-23); Potassium 3.3 mmol/L (3.5-5.1)
[2025-02-15] MEDS: KETOROLAC TROMETH 30 MG/ML 1ML VIAL IM ONE (17:30)
== END 2025-02-15 17:33 | disposition home or self-care (01) ==
LOC: ER 15:43
DX: M25.551 Pain in right hip (principal); R07.81 Pleurodynia; Z79.1 Long term (current) use of non-steroidal anti-inflammatories (NSAID); Z79.899 Other long term (current) drug therapy; Z98.51 Tubal ligation status; V89.2XXA Person injured in unspecified motor-vehicle accident, traffic, initial encounter; Y93.89 Activity, other specified; Y92.410 Unspecified street and highway as the place of occurrence of the external cause; Y99.8 Other external cause status
CPT/HCPCS: 36415; 71045; 73502; 80048; 81001; 85025; 96372; 99284; J1885